=== PATIENT | female | born 1935 | race Caucasian/White ===

== ENCOUNTER 2016-08-06 06:46 | Day surgery (SDC) | payer MEDICARE, OTHER ==
[~2016-08-06] VITALS: Ht 154.9 cm; Wt 59.9 kg
[2016-08-06] VITALS (11 sets, daily range): BP systolic 132–160; BP diastolic 59–72; PULSE 52–85; RESP 10–16; O2SAT 92–98
[~2016-08-06 06:46] MED LIST: Bupivacaine Liposome 1.3% 20 mL Inj INFILTRATE SCH; CHLS378PW PO; CHOL500011 PO; CeFAZolin Inj 2 GM in IV Premix 1 EACH IV ONE; FUR20 PO; IBUP200C PO; LISI-567 PO; Lactated Ringer's 1,000 ML IV ONE; METO-274 PO; PHEN-683 PO; ROPI0.5T2 PO; SUMA50TA31 PO; Tranexamic Acid 100 mg/mL 10 mL Inj IV ONE; Vancomycin Inj 1,000 MG in IV Premix 1 EACH IV ONE
[2016-08-06] MEDS ORDERED: EPHEDrine/NS 5 mg/mL 5 mL Syringe ONE (06:47)
[2016-08-06] MEDS ORDERED: Dexamethasone 4 mg/mL Inj ONE (06:47)
[2016-08-06] MEDS ORDERED: Glycopyrrolate 0.2 MG/ML 1mL Inj ONE (06:47)
[2016-08-06] MEDS ORDERED: fentaNYL-PF 50 mCg/mL 2 mL Inj ONE (06:47)
[2016-08-06] MEDS ORDERED: Propofol 10,000 mCg/mL 20 mL Inj ONE (06:47)
[2016-08-06] MEDS ORDERED: Ondansetron 2 mg/mL 2 mL Inj ONE (06:47)
--- NOTE | 2016-08-06 07:10 | PCM.HPANE ---
Patient Data Surgeon Admitting Provider: Attending Provider:Andrea Lovett MD Primary Care Physician:Noa Blackmon MD Other Provider:АлександрocNohemiClarita Anesthesia Reason for Visit Left Knee Arthritis Ht/WT & BMI Height (Feet): 5 Height (Inches): 1 Weight (Kilograms): 61.77 Body Mass Index 25.00 Allergies Coded Allergies: sulfamethoxazole (Verified Allergy, Unknown, 08/02/16) trimethoprim (Verified Allergy, Unknown, 08/02/16) Past Anesthesia History Anesthesia History: Denies:: Abnormal Airway, Anesthesia Reactions, Difficult Intubation, Malignant Hyperthermia Diabetes History Hx Diabetes?: No MRSA MRSA: No Medications Hypertension Medication: Yes Home Meds Incl Beta Lorne: Yes Date Beta Lorne Taken: Aug 06, 2016 Time Beta Lorne Taken: 544 Reported Medications Cholecalciferol (Vitamin D3) (Vitamin D3)5,000 Unit Tablet5,000 Unit PO DAILY 08/02/16 Ropinirole 0.5 Mg Tablet0.5-1.5 Mg PO HS Ref 0 08/02/16 Phenazopyridine (Pyridium)100 Mg [id number] Mg PO PRN For Painful Urination Ref 0 08/02/16 Metoprolol Succinate ER 100 Mg Tab.er.[id number] Mg PO DAILY Ref 0 08/02/16 Lisinopril 20 Mg Geuiib09 Mg PO BID 30 Days Ref 0 08/02/16 Sumatriptan Succinate (Imitrex)50 Mg Dehwdv99 Mg PO PRN migraines MR- NTE 200mg/24hrs 08/02/16 Ibuprofen 200 Mg Tswtoml086 Mg PO QID PRN For Pain Ref 0 08/02/16 Furosemide 20 Mg Tab20 Mg PO DAILY 30 Days Ref 0 08/02/16 Cholestyramine (Questran Powder)378 Gm Powd9 Gm PO DAILY #1 CAN Ref 0 08/02/16 Discontinued Reported Medications [Probiotics] No Conflict Check1 Tab PO BID 05/25/14 Sulfamethoxazole/Trimeth 800-160 mg (Bactrim DS 800-160 mg)1 Each Tablet1 Each PO BID 10 Days Ref 0 05/25/14 Lorazepam 0.5 Mg Tablet0.25-0.5 Mg PO BID PRN For Anxiety Ref 0 05/25/14 Cholestyramine/Sugar Powder 378 Gm Powder9 Gm PO BID #1 CAN Ref 0 05/11/14 Sumatriptan Succinate (Imitrex)50 Mg [id number] Mg PO PRN PRN For Headache 05/11/14 Pramipexole Dihydrochloride (Mirapex)0.25 Mg Tablet0.25 Mg PO PM PRN PRN 05/11/14 Lisinopril 20 Mg Qxbwpc10 Mg PO DAILY 30 Days Ref 0 05/11/14 Cholecalciferol (Vitamin D3) (Vitamin D3)5,000 Unit Tablet5,000 Unit PO DAILY 05/11/14 History History of ENT Problems?: Yes HEENT History: Positive for:: Cataracts (bilateral) Glaucoma (prior laser surgery for) Denies:: Abnormal Airway Difficult Intubation Dysphagia Hearing Problem Sinus Problem TMJ Denture Type: Partial- Upper Hx of Heart Problems?: Yes Cardiovascular History: Positive for:: Hypertension Denies:: AICD Abdominal Aortic Aneurism Atrial Fibrillation Heart Murmur Irregular Heartbeat Pacemaker Peripheral Vascular Rheumatic Fever Thrombophlebitis Hx of Respiratory Problem?: No Respiratory History: Denies:: Asthma COPD Emphysema Oxygen Administration Pneumonia Tuberculosis Use of C-PAP Machine Hx Neurologic Problems?: Yes Neurological History: Positive for:: Headaches (not very often- maybe once month) Denies:: CVA Multiple Sclerosis Parkinson's Disease Seizures TIA Other Neurological Pertinent: restless leg syndrome, prior hx of trigeminal neuralgia- surgery for 1983 - nerves on right side of face weaker- some occasional tic around eye/nose Hx of GI Problems?: Yes Gastrointestinal History: Denies:: Gall Bladder Disease Gastroesphageal Reflux Heartburn Hiatal Hernia Liver Disease Rectal Bleeding Other GI Pertinent History: colitis- collagenous- antibiotics causes flares takes cholestryamine for treatment Hx of Problems?: Yes Genitourinary History: Denies:: Kidney Stones Urinary Tract Infection (past hx of) Female Hx: Denies:: Currently (hysterectomy) Problems with Breasts? Skin History: Denies:: History Skin Disorders? Pressure Ulcers Hx Musculoskeletal Problems?: Yes Musculoskeletal History: Positive for:: Osteoarthritis Denies:: Fibromyalgia Joint Replacement Myasthenia Gravis Hx of Psycho/Social Problems?: Yes Psycho Social History: Positive for:: Anxiety Hx Surgeries?: Yes (cataracts, eye laser, vag hyst, bunion, bladder surgx3, interstim removed) Hx Any Other Health Problems?: Yes Other History: Positive for:: Cancer (bcc nose) Hospitalization Denies:: Endocrine Disease Thyroid Disease History Blood Transfusions: Positive for:: Accept Blood Products? Denies:: Blood Transfusions Hx Diabetes: No Hx Alcohol Use: NoHx Substance Use: No Smoking Status: Former Smoker Have You Smoked inLast 12 mo: No Stop/Bang S-Snoring: Do You Snore Loudly: No T-Tired: feel tired, fatigued: No O-Obsered: Observed not breath: No P-Blood Pressure: treated: Yes B- Body Mass Index > 35 kg/m2: No WALDO Risk Assessment: Low Risk, <3 Yes Risk Assessment Category Category 1A: Patient has history of documented sleep apnea, and HAS NOT received any narcotic, sedative or anesthesia administration during this stay. Category 1B: Patient has history of documented sleep apnea, and HAS received any narcotic , sedative or anesthesia administration during this stay Category 2: Patient has SUSPECTED Obstructive Sleep Apnea, and HAS received any narcotic , sedative or anesthesia administration during this stay. Category 3: Patient has SUSPECTED Obstructive Sleep Apnea and HAS NOT received narcotic, sedative or anesthesia administration during this stay. Category 4: Outpatient in Procedural Areas with known sleep apnea or who screen positive for High Risk via the STOP/BANG questionnaire. Exam Exam General Appearance: Alert, Oriented X3, Cooperative, No Acute Distress HEENT/AIRWAY: MP 1 Lungs: Normal Air Movement Heart: Exam Unremarkable Meds/Labs/Diagnostics Admission Meds Current Medications Lactated Ringer's (Lr) 1,000 ml @ 120 mls/hr Q8H20M ONCE IV Last administered on 08/06/16t 06:56; Start 08/06/16 at 05:00; Stop 08/06/16 at 13:19 Plan Impression Patient chart reviewed, patient interviewed and anesthestic plan with risks, benefits, and alternatives discussed, and informed consent obtained. NPO Status: 1600 08/05/16 ASA Physical Status: ASA2 Mod Systemic Disease Anesthetic Plan: GA Bene/Risks/Altern/Consents: Yes HP Complete Prior to Induction: Yes Richard Schwarz MD Aug 06, 2016 07:10
[2016-08-06] MEDS ORDERED: 0.9% Sodium Chloride 100 ML ONE (08:21)
[2016-08-06] MEDS ORDERED: Dexamethasone 4 mg/mL Inj IVPUSH PRN (09:10)
[2016-08-06] MEDS ORDERED: Phenylephrine 10,000 mCg/mL Inj IVPUSH PRN (09:10)
[2016-08-06] MEDS ORDERED: Lactated Ringer's 500 ML IV PRN (09:10)
[2016-08-06] MEDS ORDERED: Ondansetron 2 mg/mL 2 mL Inj IVPUSH PRN (09:10)
[2016-08-06] MEDS ORDERED: fentaNYL-PF 50 mCg/mL 2 mL Inj IVPUSH PRN (09:10)
[2016-08-06] MEDS ORDERED: Lactated Ringer's 1,000 ML IV SCH (09:10)
[2016-08-06] MEDS ORDERED: EPHEDrine Sulfate 50 mg/mL Inj IVPUSH PRN (09:10)
[2016-08-06] MEDS ORDERED: MetoCLOpramide 5 mg/mL 2 mL Inj IVPUSH PRN (09:10)
[2016-08-06] MEDS ORDERED: Gentamicin 40 mg/mL 2 mL Inj IRRIGATION ONE (09:25)
[2016-08-06] MEDS ORDERED: Bupivacaine Liposome 1.3% 20 mL Inj INFILTRATE ONE (09:26)
[2016-08-06] MEDS ORDERED: Bupivacaine-MPF 0.25%/EPI 30 mL Inj INJ ONE (09:26)
[2016-08-06] MEDS ORDERED: Tranexamic Acid 100 mg/mL 10 mL Inj TOPICAL ONE (09:27)
[2016-08-06] MEDS ORDERED: oxyCODONE-Acetamin 5-325 mg Tablet PO PRN (10:05)
[2016-08-06] MEDS ORDERED: HYDROcodone-APAP 5-325 mg Tablet PO PRN (10:05)
--- NOTE | 2016-08-06 10:46 | PCM.ANEP2 ---
Post Anesthesia Evaluation ASA/CMS Post Anesthesia VS in Patient's Normal Range?: Yes Resp Stable; Airway Patent?: Yes CV Function & Hydration Stable: Yes Mental Status Recovered?: Yes Pain control Satisfactory?: Yes N/V Control Satisfactory?: Yes Richard Schwarz MD Aug 06, 2016 10:46
--- NOTE | 2016-08-06 10:46 | PCM.ANEP1 ---
Post Anesthesia Phase 1 PACU Phase 1 Assessment Vital Signs Vital Signs Date Time Temp Pulse Resp B/P Pulse Ox O2 Delivery O2 Flow Rate FiO2 08/06/16 10:35 36.5 72 11 156/65 92 Room Air 08/06/16 10:31 73 11 153/72 94 Room Air 08/06/16 10:25 85 10 148/60 94 Room Air 08/06/16 10:20 85 15 154/65 95 Room Air 08/06/16 10:15 85 14 153/70 94 Room Air 08/06/16 07:23 36.2 52 16 151/62 98 Room Air Anesthetic Administered: GA Level of Alertness: Awake, talking AQUINO's with Equal Strength: Yes Pain: No Nausea or Vomiting: No Lungs: Normal Air Movement Dermatome Level: Full Sensation Richard Schwarz MD Aug 06, 2016 10:46
--- NOTE | 2016-08-06 10:55 | DRSVH ---
PROCEDURE: X-RAY LEFT KNEE, ONE OR TWO VIEWS ([id number]) INDICATIONS: POST PROTHESIS ALIGNMENT TECHNIQUE: 2 views of the knee were acquired. COMPARISON: [facility], , XR KNEE [facility], 02/29/2016, 14:24. FINDINGS: Intraoperative guidance related to the medial compartment hemiarthroplasty of the left knee is eviden t. The metallic prosthetic components of the medial femoral condyle and medial tibial plateau are in tact and appropriately aligned. No periprosthetic fractures are identified. Expected postoperative changes within the overlying soft tissues are present with soft tissue edema, soft tissue air, joint effusion and air within the joint space. A drainage catheter is evident. Degenerative changes of th e patellofemoral compartment are noted. IMPRESSION: Expected postoperative changes of the left knee, status post medial compartment hemiarthr oplasty. No fractures. Dictated by: Jose Mcghee M.D. on 08/06/2016 at 9:51 Approved by: Jose Mcghee M.D. on 08/06/2016 at 9:53
[2016-08-06] MEDS: HYDROmorphone 1 mg/mL Inj IVPUSH PRN ×2 (11:00→11:05)
--- NOTE | 2016-08-07 01:12 | OP ---
[address] [address] OPERATIVE REPORT PATIENT: ANKITA ROSALES I : 1935 MR#: [id number] ADMIT: 08/06/2016 JOB ID: [id number] DATE OF SURGERY: 08/06/2016 PREOPERATIVE DIAGNOSIS(ES): Advanced medial compartment osteoarthritis, right knee. POSTOPERATIVE DIAGNOSIS(ES): Advanced medial compartment osteoarthritis, right knee. PROCEDURE: Unicompartmental knee arthroplasty. SURGEON: Andrea Lovett MD TEST BORER HELPER: Brigitte Briones PA-C Nurs[employer] Counselor required due to the complexity of the operation. INDICATIONS: This woman has had severe progressive osteoarthritis symptoms uncontrolled by conservative treatment techniques. She elects to proceed with a unicompartmental knee arthroplasty. She understands and accepts the potential for risks and complications, which include, but is not limited to, infection, thromboembolic, neurovascular events, as well as potential for implant failure, progressive arthritis in unresurfaced compartments. Understanding this, she wishes to proceed. DESCRIPTION OF PROCEDURE: The patient was prepped and draped in usual sterile fashion. An anteromedial approach was made. Frontal bossing was removed and a patellar osteophyte removed. The tibial guide was then placed. Standard tibial cut was made and the #9 spacer block was placed. The distal femoral cut was made. The femur was sized utilizing the chamfer cutting guide fixed in appropriate position. Rotation and drill holes and chamfer cuts were made. Subsequent to this, sizing of the tibia ensued with trial reductions, and a 9 mm polyethylene was chosen. All meniscal tissue and osteophytes were removed from the knee. Pressurized lavage was followed by pressurized cementation of the components. Excess cement was removed during the curing process. Final construct was assembled. The tourniquet was let down. Hemostasis was achieved. A deep Hemovac drain was left. The knee was closed with #2 Quill deep, followed by a 2-0 Vicryl, 3-0, and a 4-0 intracuticular stitch. Sterile dressings were applied. The patient was taken to her room in stable condition. She tolerated the procedure well. There were no complications.
== END 2016-08-06 23:59 | disposition home or self-care (01) ==
LOC: SAS 06:46
PROVIDERS: ATTEND Orthopaedic Surgery
DX: M17.12 Unilateral primary osteoarthritis, left knee (principal); I10 Essential (primary) hypertension; E78.5 Hyperlipidemia, unspecified; G25.81 Restless legs syndrome; M85.80 Other specified disorders of bone density and structure, unspecified site; K52.831 Collagenous colitis; G50.0 Trigeminal neuralgia